=== PATIENT | female | born 1980 ===

== ENCOUNTER 2019-03-19 09:52 | Emergency (ER) | payer OTHER ==
[~2019-03-19] VITALS: Ht 144.8 cm; Wt 56.7 kg
[~2019-03-19 09:52] MED LIST: KETO10TA2 PO; ORPH100T PO
== END 2019-03-19 13:12 | disposition home or self-care (01) ==
LOC: ER 09:52
DX: J06.9 Acute upper respiratory infection, unspecified (principal)

== ENCOUNTER 2019-07-07 14:29 | Outpatient (CLI) | payer OTHER | END 2019-07-07 14:32 | disposition home or self-care (01) | LOC: MAMO-SONO 14:29 | DX: Z12.31 Encounter for screening mammogram for malignant neoplasm of breast (principal); Z87.898 Personal history of other specified conditions; N60.11 Diffuse cystic mastopathy of right breast; N60.12 Diffuse cystic mastopathy of left breast ==

== ENCOUNTER 2020-08-27 21:15 | Emergency (ER) | payer OTHER ==
[~2020-08-27] VITALS: Ht 144.8 cm; Wt 59.0 kg
[2020-08-27] MEDS ORDERED: ALEVE (21:55)
[2020-08-27] MEDS ORDERED: [UNRECOGNIZED DRUG - OTHER] (21:56)
== END 2020-08-27 22:37 | disposition home or self-care (01) ==
LOC: ER 21:15
DX: S61.220A Laceration with foreign body of right index finger without damage to nail, initial encounter (principal); W26.0XXA Contact with knife, initial encounter; Y93.89 Activity, other specified; Y92.098 Other place in other non-institutional residence as the place of occurrence of the external cause; Y99.8 Other external cause status